=== PATIENT | female | born 1990 | race American Indian/Alaskan Native ===

== ENCOUNTER 2023-10-01 08:53 | Inpatient (IN) | payer OTHER ==
[2023-10-01 09:52] VITALS: BMI 22.1
[2023-10-01] MEDS ORDERED: chlordiazePOXIDE HCL 25 MG CAPSULE PO SCH (11:00)
[2023-10-01] MEDS ORDERED: ACETAMINOPHEN 325 MG TABLET (FP) PO PRN (11:18)
[2023-10-01] MEDS ORDERED: chlordiazePOXIDE HCL 25 MG CAPSULE PO PRN (11:18)
[2023-10-01] MEDS ORDERED: NALOXONE HCL 0.4 MG/ML VIAL IM PRN (11:18)
[2023-10-01] MEDS ORDERED: guaiFENesin 600 MG TABLET.ER (FP) PO PRN (11:18)
[2023-10-01] MEDS ORDERED: MAG HYDROX/AL HYDROX/SIMETH 30 ML UNIT-DOSE CUP PO PRN (11:18)
[2023-10-01] MEDS ORDERED: LOPERAMIDE HCL 2 MG CAPSULE PO PRN (11:18)
[2023-10-01] MEDS ORDERED: DICYCLOMINE HCL 10 MG CAPSULE PO PRN (11:18)
[2023-10-01] MEDS ORDERED: POLYETHYLENE GLYCOL (HEALTHYLAX) 3350 17 GM PACKET PO PRN (11:18)
[2023-10-01] MEDS ORDERED: BENZOCAINE/MENTHOL (CHLORASEPTIC ) LOZENGE MM PRN (11:18)
[2023-10-01] MEDS ORDERED: MAGNESIUM HYDROX 2400MG/30ML ORAL SUSPENSION 30 ML CUP PO PRN (11:18)
[2023-10-01] MEDS ORDERED: NALOXONE HCL (KLOXXADO) 8 MG SPRAY NS PRN (11:18)
[2023-10-01] MEDS ORDERED: BENZONATATE 200 MG CAPSULE PO PRN (11:18)
[2023-10-01] MEDS ORDERED: BISMUTH SUBSALICYLATE 524 MG/30 ML PO PRN (11:18)
[2023-10-01] MEDS ORDERED: chlordiazePOXIDE HCL 25 MG CAPSULE ONE (11:38)
[2023-10-01] MEDS: ONDANSETRON *ODT* 4 MG TABLET SL PRN (12:15)
[2023-10-01] MEDS ORDERED: LORazepam 2 MG TABLET PO ONE (17:00)
[2023-10-01] MEDS ORDERED: MELATONIN 5 MG TABLETS PO SCH (22:00)
[2023-10-01] MEDS: SUVOREXANT 10 MG TABLET PO PRN (22:13)
[2023-10-01] MEDS: THIAMINE HCL 100 MG TABLET (FP) PO SCH (22:14)
[2023-10-01] MEDS: LORazepam 2 MG TABLET PO SCH (22:14)
[2023-10-01] MEDS: METHOCARBAMOL 500 MG TABLET PO PRN (22:15)
[2023-10-02] MEDS: IBUPROFEN 600 MG TABLET (FP) PO PRN ×2 (01:13→19:46)
[2023-10-02] MEDS: hydrOXYzine PAMOATE 25 MG CAPSULE (FP) PO PRN ×2 (01:13→22:07)
[2023-10-02] MEDS: LORazepam 2 MG TABLET PO SCH ×4 (05:41→22:08)
[2023-10-02] MEDS: PRENATAL VITAMINS W/ FOLIC ACID TABLET (FP) PO SCH (10:16)
[2023-10-02] MEDS: NICOTINE POLACRILEX 2 MG GUM BUC PRN ×3 (10:19→20:38)
[2023-10-02 11:39] LABS: POTASSIUM 3.7 mmol/L (3.5-5.1)
[2023-10-02 11:42] LABS: HEMATOCRIT 36.1 % (32.4-45.2); HEMOGLOBIN 12.1 GM/dL (10.7-15.3); MCH 30.9 pg (25.7-33.7); MCHC 33.5 g/dl (32.0-36.0); MEAN CELL VOLUME 92.1 fl (80-96); MEAN PLT VOLUME 6.6 fl (7.5-11.1); PLATELET COUNT 333 10^3/uL (134-434); RBC 3.92 M/mm3 (3.60-5.2); RDW 14.7 % (11.6-15.6); WHITE BLOOD COUNT 4.6 K/mm3 (4.0-10.0)
[2023-10-02 11:57] LABS: ALBUMIN 3.6 g/dl (3.4-5.0); BLOOD UREA NITROGEN 7.3 mg/dL (7-18); CALCIUM 8.5 mg/dL (8.5-10.1)
[2023-10-02 11:58] LABS: BILIRUBIN,TOTAL 0.6 mg/dL (0.2-1)
[2023-10-02 12:00] LABS: CREATININE 0.6 mg/dL (0.55-1.3)
[2023-10-02] MEDS: ONDANSETRON *ODT* 4 MG TABLET SL PRN (17:47)
[2023-10-02] MEDS: SUVOREXANT 10 MG TABLET PO PRN (22:07)
[2023-10-02] MEDS: THIAMINE HCL 100 MG TABLET (FP) PO SCH (22:07)
[2023-10-03] MEDS: METHOCARBAMOL 500 MG TABLET PO PRN ×2 (00:57→19:48)
[2023-10-03] MEDS ORDERED: chlordiazePOXIDE HCL 25 MG CAPSULE PO SCH (05:00)
[2023-10-03] MEDS: IBUPROFEN 400 MG TABLET (FP) PO PRN (05:43)
[2023-10-03] MEDS: LORazepam 1 MG TABLET PO SCH ×4 (05:43→22:09)
[2023-10-03] MEDS: PRENATAL VITAMINS W/ FOLIC ACID TABLET (FP) PO SCH (10:16)
[2023-10-03] MEDS: hydrOXYzine PAMOATE 25 MG CAPSULE (FP) PO PRN (17:22)
[2023-10-03] MEDS: THIAMINE HCL 100 MG TABLET (FP) PO SCH (22:09)
[2023-10-03] MEDS: SUVOREXANT 10 MG TABLET PO PRN (22:10)
[2023-10-04] MEDS ORDERED: chlordiazePOXIDE HCL 10 MG CAPSULE PO PRN
[2023-10-04] MEDS: hydrOXYzine PAMOATE 25 MG CAPSULE (FP) PO PRN ×3 (01:44→22:03)
[2023-10-04] MEDS ORDERED: chlordiazePOXIDE HCL 10 MG CAPSULE PO SCH (05:00)
[2023-10-04] MEDS: METHOCARBAMOL 500 MG TABLET PO PRN ×3 (05:26→22:02)
[2023-10-04] MEDS: LORazepam 0.5 MG TABLET PO SCH ×4 (05:26→22:03)
[2023-10-04] MEDS: IBUPROFEN 400 MG TABLET (FP) PO PRN (09:01)
[2023-10-04] MEDS: PRENATAL VITAMINS W/ FOLIC ACID TABLET (FP) PO SCH (10:04)
[2023-10-04] MEDS: ONDANSETRON *ODT* 4 MG TABLET SL PRN (14:29)
[2023-10-04] MEDS: NICOTINE POLACRILEX 2 MG GUM BUC PRN ×2 (15:50→20:15)
[2023-10-04] MEDS: THIAMINE HCL 100 MG TABLET (FP) PO SCH (22:02)
[2023-10-05] MEDS ORDERED: chlordiazePOXIDE HCL 10 MG CAPSULE PO SCH (05:00)
[2023-10-05] MEDS: METHOCARBAMOL 500 MG TABLET PO PRN (05:38)
[2023-10-05] MEDS ORDERED: LORazepam 0.5 MG TABLET PO SCH (06:00)
[2023-10-05 09:14] VITALS: BP 110/60; PULSE 85; RESP 16; TEMP 97.3
[2023-10-06] MEDS ORDERED: chlordiazePOXIDE HCL 10 MG CAPSULE PO ONE (05:00)
[2023-10-06] MEDS ORDERED: LORazepam 0.5 MG TABLET PO ONE (06:00)
== END 2023-10-05 09:58 | disposition home or self-care (01) | DRG 775 ==
LOC: YASAS 08:53 → Y6N 11:01
PROVIDERS: ADMIT Allergy & Immunology; ATTEND Surgery
PROC: HZ2ZZZZ Detoxification Services for Substance Abuse Treatment (ICD-10-PCS; principal; 2023-10-01)
DX: F10.230 Alcohol dependence with withdrawal, uncomplicated (principal); F16.20 Hallucinogen dependence, uncomplicated; F12.10 Cannabis abuse, uncomplicated; F17.210 Nicotine dependence, cigarettes, uncomplicated; F41.1 Generalized anxiety disorder; F43.10 Post-traumatic stress disorder, unspecified; Z62.810 Personal history of physical and sexual abuse in childhood; Z91.410 Personal history of adult physical and sexual abuse
CPT/HCPCS: 36415; 80053; 80307; 81025; 85027; 86780; 87635; 87811; 93005; 93010; Q0162